=== PATIENT | male | born 1960 | race Caucasian/White ===

== ENCOUNTER 2021-11-13 09:24 | Emergency (ER) | payer MEDICAID ==
[2021-11-13] MEDS ORDERED: HYDROmorphone 2 MG/ML SDV IVPUSH ONE (09:54)
[2021-11-13] MEDS ORDERED: Ondansetron 4 MG/2 ML SDV IVPUSH ONE (09:54)
[2021-11-13] MEDS ORDERED: Sodium Chloride 0.9% 1,000 ML IV ONE ×2 (09:56→10:38)
[2021-11-13 10:20] LABS: BASE EXCESS VENOUS,POC 2 mmol/L (-2 - 3+); PCO2 VENOUS,POC 40 mmHg (41-51); PH VENOUS,POC 7.43 pH Units (7.32-7.43)
[2021-11-13 10:53] LABS: HEMOGLOBIN A1C 9.8 % (<5.7)
[2021-11-13] MEDS ORDERED: Iopamidol 755 Mg/ML 100 ML Bottle IV ONE (12:32)
[2021-11-13] MEDS ORDERED: Ketorolac 30 MG/ML SDV IVPUSH ONE (14:51)
[2021-11-13] MEDS ORDERED: Piperacillin/Tazobactam 4.5 GM in Sodium Chloride 0.9% 100 ML IV ONE (15:15)
[2021-11-13] MEDS ORDERED: LORazepam 2 MG/ML SDV IVPUSH ONE (15:51)
[2021-11-13] MEDS ORDERED: methylPREDNISolone Sodium Succinate 125 MG/2 ML SDV IVPUSH ONE (15:55)
== END 2021-11-13 17:38 ==
LOC: FB.ED 09:24
DX: K86.1 Other chronic pancreatitis (principal); E11.65 Type 2 diabetes mellitus with hyperglycemia; R79.89 Other specified abnormal findings of blood chemistry; E86.0 Dehydration; R79.82 Elevated C-reactive protein (CRP); D72.829 Elevated white blood cell count, unspecified; R82.4 Acetonuria; Z96.89 Presence of other specified functional implants; Z20.822 Contact with and (suspected) exposure to COVID-19; Z72.0 Tobacco use
CPT/HCPCS: 36415; 71275; 74177; 80053; 81001; 83036; 83605; 83690; 84484; 85025; 85379; 85610; 86140; 87040; 87635; 93005; 93010; 96365; 96375; 99284; 99285; J1170; J1885; J2405; J2543; J7030; Q9967; U0002

== ENCOUNTER 2022-04-02 18:34 | Emergency (ER) | payer OTHER, MEDICAID ==
[2022-04-02] MEDS ORDERED: Ondansetron 4 MG Tab.DIS PO ONE (19:02)
[2022-04-02] MEDS ORDERED: Morphine 4 MG/ML VIAL IM ONE (19:05)
[2022-04-02] MEDS ORDERED: Ketorolac 30 MG/ML SDV IM ONE (20:31)
== END 2022-04-02 20:50 | disposition home or self-care (01) ==
LOC: FB.ED 18:34
DX: S42.022A Displaced fracture of shaft of left clavicle, initial encounter for closed fracture (principal); S00.83XA Contusion of other part of head, initial encounter; S80.02XA Contusion of left knee, initial encounter; S80.212A Abrasion, left knee, initial encounter; I10 Essential (primary) hypertension; E11.9 Type 2 diabetes mellitus without complications; F17.210 Nicotine dependence, cigarettes, uncomplicated; V19.9XXA Pedal cyclist (driver) (passenger) injured in unspecified traffic accident, initial encounter; Y92.410 Unspecified street and highway as the place of occurrence of the external cause
CPT/HCPCS: 70450; 71045; 72125; 73030; 73560; 81001; 96372; 99284; J1885; J2270; Q0162

== ENCOUNTER 2022-06-29 12:05 | Emergency (ER) | payer SELFPAY | END 2022-06-29 14:25 | disposition home or self-care (01) | LOC: FB.ED 12:05 | DX: F41.9 Anxiety disorder, unspecified (principal); I10 Essential (primary) hypertension; E11.9 Type 2 diabetes mellitus without complications; Z86.16 Personal history of COVID-19 | CPT/HCPCS: 99283 ==

== ENCOUNTER 2023-06-06 12:41 | Emergency (ER) | payer MEDICAID ==
[2023-06-06] MEDS ORDERED: Diphtheria,Pertussis(Acell),Tetanus Vaccine 0.5 ML Syringe IM ONE (13:16)
== END 2023-06-06 13:30 ==
LOC: FB.ED 12:41
DX: S09.93XA Unspecified injury of face, initial encounter (principal); F10.129 Alcohol abuse with intoxication, unspecified; Z23 Encounter for immunization; I10 Essential (primary) hypertension; E11.9 Type 2 diabetes mellitus without complications; Z86.16 Personal history of COVID-19; Z90.49 Acquired absence of other specified parts of digestive tract; Z91.048 Other nonmedicinal substance allergy status; Z79.4 Long term (current) use of insulin; Y04.2XXA Assault by strike against or bumped into by another person, initial encounter
CPT/HCPCS: 90471; 90715; 99283; 99283-25

== ENCOUNTER 2023-06-07 15:00 | Emergency (ER) | payer OTHER, MEDICAID ==
[2023-06-07] MEDS ORDERED: Ondansetron 4 MG Tab.DIS PO ONE (15:17)
[2023-06-07] MEDS ORDERED: traMADol 50 MG Tab PO ONE (15:31)
== END 2023-06-07 16:27 ==
LOC: FB.ED 15:00
DX: S09.90XA Unspecified injury of head, initial encounter (principal); S09.93XA Unspecified injury of face, initial encounter; I10 Essential (primary) hypertension; E11.9 Type 2 diabetes mellitus without complications; F17.210 Nicotine dependence, cigarettes, uncomplicated; Z86.16 Personal history of COVID-19; Z90.49 Acquired absence of other specified parts of digestive tract; Z79.4 Long term (current) use of insulin; Z91.048 Other nonmedicinal substance allergy status; Z79.899 Other long term (current) drug therapy; Y04.2XXA Assault by strike against or bumped into by another person, initial encounter
CPT/HCPCS: 70450; 70486; 99283; 99284; A9270; Q0162

== ENCOUNTER 2023-06-10 14:03 | Emergency (ER) | payer OTHER, MEDICAID ==
[2023-06-10] MEDS ORDERED: Sodium Chloride 0.9% 10 ML Syringe FLUSH PRN (14:13)
[2023-06-10 14:36] LABS: BASOPHILS ABSOLUTE AUTO 0.1 x10-3/uL (0.0-0.3); BASOPHILS PERCENT AUTO 1.1 % (0.3-3.8); EOSINOPHILS ABSOLUTE AUTO 0.1 x10-3/uL (0.0-0.6); EOSINOPHILS PERCENT AUTO 0.8 % (0.1-6.8); HEMATOCRIT 46.3 % (38.3-50.1); LYMPHOCYTES ABSOLUTE AUTO 1.1 x10-3/uL (0.5-4.5); LYMPHOCYTES PERCENT AUTO 12.5 % (15.8-45.3); MEAN CORPUSCULAR HEMOGLOBIN 31.8 pg (27.0-33.3); MEAN CORPUSCULAR HGB CONC 34.6 g/dL (28.7-35.3); MEAN PLATELET VOLUME 8.3 fL (6.7-11.0); MONOCYTES ABSOLUTE AUTO 0.7 x10-3/uL (0.0-1.2); MONOCYTES PERCENT AUTO 7.6 % (5.5-15.2); PLATELET COUNT,PLT 275 x10(3)uL (117-477); RED BLOOD CELL COUNT 5.03 x10(6)uL (3.90-5.90); RED CELL DISTRIBUTION WIDTH 13.4 % (12.4-15.0)
[2023-06-10 14:41] LABS: BASE EXCESS VENOUS,POC 2 mmol/L (-2 - 3+); PCO2 VENOUS,POC 38 mmHg (41-51); PH VENOUS,POC 7.44 pH Units (7.32-7.43)
[2023-06-10 14:47] LABS: A/G RATIO 1.2; ALANINE AMINOTRANSFERASE,ALT 61 U/L (12-36); ALBUMIN 3.8 g/dL (3.2-4.6); ALKALINE PHOSPHATASE 136 IU/L (56-112); ASPARTATE AMNIOTRANSFERASE,AST 27 IU/L (5-25); BILIRUBIN TOTAL 0.9 mg/dL (0.1-1.3); BLOOD UREA NITROGEN,BUN 14 mg/dL (7-18); BUN/CREATININE RATIO 15.6 (9-20); CALCIUM 9.5 mg/dL (8.6-10.2); CARBON DIOXIDE,CO2 26 mmol/L (21-32); CHLORIDE,CL 100 mmol/L (100-110); CREATININE 0.9 mg/dL (0.70-1.30); ESTIMATED GFR 97 mL/min (>60); MAGNESIUM 1.7 mg/dL (1.8-2.5); POTASSIUM,K 4.5 mmol/L (3.5-5.3); SODIUM,NA 134 mmol/L (135-145)
[2023-06-10 14:53] LABS: GLUCOSE RANDOM 585 mg/dL (80-116)
[2023-06-10] MEDS: Aspirin 81 MG Tab.Chew PO ONE (14:55)
[2023-06-10] MEDS ORDERED: Glucagon,Human Recombinant 1 MG Vial IM PRN (15:28)
[2023-06-10] MEDS ORDERED: 50% Dextrose in Water 50 ML Syringe IVPUSH PRN (15:28)
[2023-06-10 15:56] LABS: BILIRUBIN,URINE NEGATIVE (NEGATIVE); GLUCOSE,URINE >1000 mg/dL (NORMAL); KETONES,URINE 15 mg/dL (NEGATIVE); LEUKOCYTE ESTERASE,URINE NEGATIVE (NEGATIVE); NITRITE,URINE NEGATIVE (NEGATIVE); OCCULT BLOOD,URINE NEGATIVE (NEGATIVE); PROTEIN,URINE NEGATIVE (NEGATIVE); UROBILINOGEN,URINE NORMAL (NEGATIVE)
[2023-06-10] MEDS: Sodium Chloride 0.9% 1,000 ML IV ONE (16:10)
[2023-06-10] MEDS: Insulin Regular, Human 100 Units/ML 3 ML Vial IV ONE (16:12)
[2023-06-10 16:25] LABS: APPEARANCE,URINE CLEAR (CLEAR); BACTERIA,URINE OCCASIONAL (NS); COLOR,URINE YELLOW (YELLOW); RBC,URINE 0-5 (0-5); SQUAMOUS EPITHELIAL CELLS,UR OCCASIONAL (NS,R,O); WBC,URINE 0-5 (0-5)
[2023-06-10] MEDS: Sodium Chloride 0.9% 1,000 ML IV SCH (17:52)
[2023-06-10] MEDS ORDERED: Sodium Chloride 0.9% 1,000 ML IV SCH (18:00)
== END 2023-06-10 18:32 ==
LOC: FB.ED 14:03
DX: E11.65 Type 2 diabetes mellitus with hyperglycemia (principal); R07.89 Other chest pain; R94.31 Abnormal electrocardiogram [ECG] [EKG]; E86.0 Dehydration; I10 Essential (primary) hypertension; F17.200 Nicotine dependence, unspecified, uncomplicated; Z79.2 Long term (current) use of antibiotics; Z79.899 Other long term (current) drug therapy; Z91.048 Other nonmedicinal substance allergy status; Z86.16 Personal history of COVID-19; Z90.49 Acquired absence of other specified parts of digestive tract
CPT/HCPCS: 36415; 71045; 80053; 81001; 82947; 83735; 84484; 85025; 93005; 96360; 96361; 99285; A9270; J1815; J7030

== ENCOUNTER 2023-07-05 20:15 | Emergency (ER) | payer OTHER, MEDICAID, BC ==
[2023-07-05] MEDS ORDERED: Sodium Chloride 0.9% 10 ML Syringe FLUSH PRN (20:23)
[2023-07-05] MEDS ORDERED: Glucagon,Human Recombinant 1 MG Vial IM PRN (20:24)
[2023-07-05] MEDS ORDERED: Insulin Lispro 100 Unit/ML 3 ML KwikPen SUBCUT STA (20:24)
[2023-07-05] MEDS ORDERED: 50% Dextrose in Water 50 ML Syringe IVPUSH PRN (20:24)
[2023-07-05] MEDS ORDERED: Sodium Chloride 0.9% 1,000 ML IV SCH (20:30)
[2023-07-05] MEDS ORDERED: Ondansetron 4 MG/2 ML SDV IVPUSH ONE (20:32)
[2023-07-05 20:48] LABS: BASOPHILS PERCENT AUTO 0.5 % (0.3-3.8); EOSINOPHILS ABSOLUTE AUTO 0.3 x10-3/uL (0.0-0.6); EOSINOPHILS PERCENT AUTO 3.8 % (0.1-6.8); HEMATOCRIT 45.5 % (38.3-50.1); HEMOGLOBIN 15.5 g/dL (12.9-17.7); LYMPHOCYTES ABSOLUTE AUTO 2.6 x10-3/uL (0.5-4.5); LYMPHOCYTES PERCENT AUTO 28.9 % (15.8-45.3); MEAN CORPUSCULAR HEMOGLOBIN 31.7 pg (27.0-33.3); MEAN CORPUSCULAR VOLUME 93.1 fL (80.8-98.7); MONOCYTES ABSOLUTE AUTO 0.6 x10-3/uL (0.0-1.2); MONOCYTES PERCENT AUTO 6.1 % (5.5-15.2); NEUTROPHILS ABSOLUTE AUTO 5.5 x10-3/uL (1.7-6.9); NEUTROPHILS PERCENT AUTO 60.7 % (40.3-71.8); PLATELET COUNT,PLT 249 x10(3)uL (117-477); RED BLOOD CELL COUNT 4.88 x10(6)uL (3.90-5.90); RED CELL DISTRIBUTION WIDTH 13.5 % (12.4-15.0); WHITE BLOOD CELL COUNT,WBC 9.1 x10-3/uL (3.2-10.1)
[2023-07-05 20:57] LABS: A/G RATIO 1.3; ALANINE AMINOTRANSFERASE,ALT 64 U/L (12-36); ALBUMIN 3.7 g/dL (3.2-4.6); ALKALINE PHOSPHATASE 148 IU/L (56-112); ASPARTATE AMNIOTRANSFERASE,AST 27 IU/L (5-25); BILIRUBIN TOTAL 0.3 mg/dL (0.1-1.3); BLOOD UREA NITROGEN,BUN 15 mg/dL (7-18); BUN/CREATININE RATIO 18.8 (9-20); CALCIUM 9.6 mg/dL (8.6-10.2); CARBON DIOXIDE,CO2 26 mmol/L (21-32); CHLORIDE,CL 101 mmol/L (100-110); CREATININE 0.8 mg/dL (0.70-1.30); EST CRCL DRUG DOSING (CG) 94.06 mL/min; ESTIMATED GFR 101 mL/min (>60); PROTEIN TOTAL,TP 6.6 g/dL (6.0-8.0); SODIUM,NA 136 mmol/L (135-145)
[2023-07-05 20:58] LABS: GLUCOSE RANDOM 441 mg/dL (80-116)
[2023-07-05 20:59] LABS: TROPONIN I 4.5 pg/mL (4.0-60.3)
[2023-07-05 21:25] LABS: BILIRUBIN,URINE NEGATIVE (NEGATIVE); GLUCOSE,URINE >1000 mg/dL (NORMAL); KETONES,URINE 15 mg/dL (NEGATIVE); LEUKOCYTE ESTERASE,URINE NEGATIVE (NEGATIVE); NITRITE,URINE NEGATIVE (NEGATIVE); OCCULT BLOOD,URINE NEGATIVE (NEGATIVE); PROTEIN,URINE NEGATIVE (NEGATIVE); UROBILINOGEN,URINE NORMAL (NEGATIVE)
[2023-07-05 21:30] LABS: APPEARANCE,URINE CLEAR (CLEAR); BACTERIA,URINE FEW (NS); COLOR,URINE YELLOW (YELLOW); RBC,URINE 0-5 (0-5); SQUAMOUS EPITHELIAL CELLS,UR RARE (NS,R,O); WBC,URINE 0-5 (0-5)
[2023-07-05 21:31] LABS: AMPHETAMINES SCREEN, URINE NEGATIVE (NEGATIVE); BARBITURATE SCREEN,URINE NEGATIVE (NEGATIVE); BENZODIAZEPINES SCREEN,URINE NEGATIVE (NEGATIVE); BUPRENORPHINE SCREEN,URINE NEGATIVE (NEGATIVE); METHADONE SCREEN, URINE NEGATIVE (NEGATIVE); METHAMPHETAMINE SCREEN, URINE NEGATIVE (NEGATIVE); OXYCODONE SCREEN,URINE NEGATIVE (NEGATIVE); THC SCREEN,URINE POSITIVE (NEGATIVE)
[2023-07-05 22:00] LABS: INFLUENZA A NAA NEGATIVE (NEGATIVE); INFLUENZA B NAA NEGATIVE (NEGATIVE); RESPIRATORY SYNCYTIAL VIR NAA NEGATIVE (NEGATIVE)
[2023-07-05 22:01] LABS: CORONAVIRUS COVID-19 NAA NEGATIVE (NEGATIVE)
== END 2023-07-05 22:30 | disposition home or self-care (01) ==
LOC: FB.ED 20:15
DX: E11.65 Type 2 diabetes mellitus with hyperglycemia (principal); F10.129 Alcohol abuse with intoxication, unspecified; F19.10 Other psychoactive substance abuse, uncomplicated; I10 Essential (primary) hypertension; F17.210 Nicotine dependence, cigarettes, uncomplicated; Z20.822 Contact with and (suspected) exposure to COVID-19; Z86.16 Personal history of COVID-19; Z79.899 Other long term (current) drug therapy; Z91.048 Other nonmedicinal substance allergy status; Z79.4 Long term (current) use of insulin
CPT/HCPCS: 0241U; 36415; 71045; 80053; 80307; 81001; 82150; 82947; 83690; 84484; 85025; 93005; 96361; 96374; 99285-25; J1815; J2405; J3490; J7030

== ENCOUNTER 2024-01-09 11:23 | Emergency (ER) | payer MEDICAID | END 2024-01-09 12:26 | disposition home or self-care (01) | LOC: FB.ED 11:23 | DX: E11.65 Type 2 diabetes mellitus with hyperglycemia (principal); I10 Essential (primary) hypertension; F17.200 Nicotine dependence, unspecified, uncomplicated; Z86.16 Personal history of COVID-19; Z90.49 Acquired absence of other specified parts of digestive tract; Z79.4 Long term (current) use of insulin; Z91.048 Other nonmedicinal substance allergy status | CPT/HCPCS: 82947; 93005; 93010; 99283; 99284 ==

== ENCOUNTER 2024-12-16 19:16 | Emergency (ER) | payer BC, MEDICAID ==
[2024-12-16] MEDS: Ibuprofen 800 MG Tab PO ONE (19:34)
[2024-12-16] MEDS: Lidocaine 2% Viscous Solution 15 ML UD PO ONE (19:34)
[2024-12-16] MEDS: Amoxicillin/Clavulanate K 875-125 MG Tab PO ONE (19:34)
== END 2024-12-16 19:55 | disposition home or self-care (01) ==
LOC: FB.ED 19:16
DX: K04.7 Periapical abscess without sinus (principal); E11.9 Type 2 diabetes mellitus without complications; I10 Essential (primary) hypertension; F17.210 Nicotine dependence, cigarettes, uncomplicated; Z79.84 Long term (current) use of oral hypoglycemic drugs; Z79.4 Long term (current) use of insulin; Z91.048 Other nonmedicinal substance allergy status
CPT/HCPCS: 99282; A9270

== ENCOUNTER 2025-04-07 10:19 | Day surgery (SDC) | payer MEDICAID ==
[2025-04-07] MEDS: Ketorolac 30 MG/ML SDV IVPUSH ONE (11:19)
[2025-04-07] MEDS: Sodium Chloride 0.9% 10 ML Syringe FLUSH PRN (11:19)
[2025-04-07] MEDS: Acetaminophen/oxyCODONE 325-5 MG Tab PO STA (11:20)
[2025-04-07] MEDS ORDERED: Diphtheria,Pertussis(Acell),Tetanus Vaccine 0.5 ML Syringe IM ONE (11:57)
[2025-04-07] MEDS: metroNIDAZOLE/Normal Saline 500 MG in Premix Bag 1 BAG IV ONE (12:24)
[2025-04-07 12:56] LABS: BASOPHILS ABSOLUTE AUTO 0.1 x10-3/uL (0.0-0.3); BASOPHILS PERCENT AUTO 0.6 % (0.3-3.8); EOSINOPHILS ABSOLUTE AUTO 0.1 x10-3/uL (0.0-0.6); EOSINOPHILS PERCENT AUTO 0.5 % (0.1-6.8); LYMPHOCYTES ABSOLUTE AUTO 0.9 x10-3/uL (0.5-4.5); LYMPHOCYTES PERCENT AUTO 6.4 % (15.8-45.3); MEAN PLATELET VOLUME 7.3 fL (6.7-11.0); MONOCYTES ABSOLUTE AUTO 1.1 x10-3/uL (0.0-1.2); MONOCYTES PERCENT AUTO 8.2 % (5.5-15.2); NEUTROPHILS ABSOLUTE AUTO 11.6 x10-3/uL (1.7-6.9); NEUTROPHILS PERCENT AUTO 84.3 % (40.3-71.8); PLATELET COUNT,PLT 261 x10(3)uL (117-477); RED BLOOD CELL COUNT 4.62 x10(6)uL (3.90-5.90); RED CELL DISTRIBUTION WIDTH 13.3 % (12.4-15.0); WHITE BLOOD CELL COUNT,WBC 13.8 x10-3/uL (3.2-10.1)
[2025-04-07 13:03] LABS: BLOOD UREA NITROGEN,BUN 14 mg/dL (7-18); CARBON DIOXIDE,CO2 20 mmol/L (21-32); CHLORIDE,CL 99 mmol/L (100-110); CREATININE 1.0 mg/dL (0.70-1.30); EST CRCL DRUG DOSING (CG) 63.06 mL/min; ESTIMATED GFR 85 mL/min (>60); GLUCOSE RANDOM 396 mg/dL (80-116); POTASSIUM,K 5.5 mmol/L (3.5-5.3); SODIUM,NA 135 mmol/L (135-145)
[2025-04-07 13:09] LABS: A/G RATIO 0.8; ALANINE AMINOTRANSFERASE,ALT 57 U/L (12-36); ASPARTATE AMNIOTRANSFERASE,AST 23 IU/L (5-25); BILIRUBIN TOTAL 0.4 mg/dL (0.1-1.3); PROTEIN TOTAL,TP 7.4 g/dL (6.0-8.0)
[2025-04-07 13:13] LABS: LACTIC ACID 2.5 mmol/L (0.4-2.0)
[2025-04-07 13:14] LABS: INR 0.88 (1.00-1.24)
[2025-04-07] MEDS ORDERED: Midazolam 1 MG/ML 2 ML SDV IV ONE (13:34)
[2025-04-07] MEDS ORDERED: fentaNYL 100 MCG/2 ML SDV IV ONE (13:34)
[2025-04-07] MEDS: Lidocaine 1% with EPINEPHrine 1:100,000 20 ML MDV INJECT ONE (13:56)
[2025-04-07] MEDS ORDERED: Ondansetron 4 MG/2 ML SDV IV PRN (14:47)
[2025-04-07] MEDS ORDERED: Glucose Gel 15 GM in 37.5 GM Tube PO PRN (14:47)
[2025-04-07] MEDS: Ciprofloxacin in D5W 400 MG in Premix Bag 1 BAG IV SCH (16:17)
[2025-04-07] MEDS: Insulin Lispro 100 Unit/ML 3 ML KwikPen SUBCUT SCH (17:57)
[2025-04-07] MEDS: metroNIDAZOLE/Normal Saline 500 MG in Premix Bag 1 BAG IV SCH (22:22)
[2025-04-08] MEDS: metroNIDAZOLE/Normal Saline 500 MG in Premix Bag 1 BAG IV SCH (05:14)
[2025-04-08] MEDS: Ketorolac 15 MG/ML SDV IVPUSH ONE (09:08)
== END 2025-04-08 14:15 | disposition home or self-care (01) ==
LOC: FB.ED 10:19 → FB.SDS 13:33 → UNDOADMIN 14:12 → FB.MS 14:12 → FB.SDS 04-08 14:15
PROVIDERS: ATTEND Surgery
DX: K61.1 Rectal abscess (principal); K64.4 Residual hemorrhoidal skin tags; I10 Essential (primary) hypertension; E11.9 Type 2 diabetes mellitus without complications; F17.210 Nicotine dependence, cigarettes, uncomplicated; Z79.4 Long term (current) use of insulin; Z88.8 Allergy status to other drugs, medicaments and biological substances; Z79.84 Long term (current) use of oral hypoglycemic drugs; Z79.899 Other long term (current) drug therapy
CPT/HCPCS: 36415; 46040; 80053; 83605; 85025; 85610; 87070; 87075; 87205; 94150; 96365; 96375; 99284; A9270; J0696; J0744; J1815; J1836; J1885; J2004; J2250; J3010; 82947